=== PATIENT | male | born 1985 | race Caucasian/White ===

== ENCOUNTER 2018-04-23 18:05 | Emergency (ER) | payer MEDICAID ==
[~2018-04-23] VITALS: Ht 172.7 cm; Wt 73.9 kg
[2018-04-23 18:11] VITALS: Ht 172.7 cm; Wt 73.9 kg
[2018-04-23 20:20] VITALS: BP 139/89
== END 2018-04-23 20:20 | disposition home or self-care (01) ==
LOC: ED 18:05
DX: S62.141A Displaced fracture of body of hamate [unciform] bone, right wrist, initial encounter for closed fracture (principal); S63.214A Subluxation of metacarpophalangeal joint of right ring finger, initial encounter; S63.216A Subluxation of metacarpophalangeal joint of right little finger, initial encounter; W22.01XA Walked into wall, initial encounter; Y93.89 Activity, other specified; Y99.8 Other external cause status; Y92.89 Other specified places as the place of occurrence of the external cause
CPT/HCPCS: Q0092